=== PATIENT | male | born 1970 | race Caucasian/White ===

== ENCOUNTER 2021-08-25 10:42 | Emergency (ER) | payer SELFPAY ==
[~2021-08-25] VITALS: Ht 180.3 cm; Wt 78.0 kg
[2021-08-25 10:43] VITALS: BP 133/69
--- NOTE | 2021-08-25 10:45 | NUR ---
MARIALUISA ALS TO ER BED 9
--- NOTE | 2021-08-25 11:35 | NUR ---
d/c with VSS. d/c back to [place] [employer] Officer Burton custody #[id number]
== END 2021-08-25 11:35 ==
LOC: MED 10:42
DX: Z02.89 Encounter for other administrative examinations (principal); F11.10 Opioid abuse, uncomplicated; R42 Dizziness and giddiness
CPT/HCPCS: 99283